=== PATIENT | female | born 1960 | race American Indian/Alaskan Native ===

== ENCOUNTER 2018-08-17 23:43 | Emergency (ER) | payer MEDICARE ==
[~2018-08-17] VITALS: Ht 172.7 cm; Wt 58.6 kg
[~2018-08-17 23:43] MED LIST: CLOT15CR10 TP; NAPR-996 PO
[2018-08-17 23:59] VITALS: BP 117/92
--- NOTE | 2018-08-18 00:13 | NUR ---
pt would like to be treated for STD - MD to order medications.
[2018-08-18] MEDS ORDERED: azithromycin 250mg tablet PO ONE (00:15)
[2018-08-18] MEDS ORDERED: CefTRIAXone 250MG IM Kit w/LIDOcaine IM ONE (00:15)
== END 2018-08-18 00:32 | disposition home or self-care (01) ==
LOC: ER 23:44
DX: A63.8 Other specified predominantly sexually transmitted diseases (principal)
CPT/HCPCS: 96372; 99283; J0696